=== PATIENT | male | born 1945 | race Caucasian/White ===

== ENCOUNTER → 2022-11-28 | Outpatient (CLI) | payer OTHER, SELFPAY ==
--- NOTE | 2022-11-28 09:10 | ECHOD_ITS ---
Reason For Study: HEART CONDITION Procedure This was a 2D Doppler, Color Flow transthoracic echocardiogram. Exam performed in department. Left Ventricle Normal LV size. Left ventricular systolic function is normal. The estimated ejection fraction is 60 %. Stage 1 diastolic dysfunction. No regional wall motion abnormalities noted. Right Ventricle Normal RV size. Normal systolic function. Atria The left atrium is mildly enlarged. Normal right atrium. Mitral Valve Status post mitral valve repair. Stable appearing mitral valve clip apparatus. Tricuspid Valve Normal tricuspid valve. Mild (1+) tricuspid valve insufficiency. Pulmonary artery systolic pressure is 32 mmHg. Aortic Valve Trisinus/trileaflet aortic valve. Mild (1+) aortic valve insufficiency. Pulmonic Valve Normal pulmonic valve. Great Vessels Normal aortic root. The pulmonary artery is normal size. Normal inferior vena cava. Pericardium/Pleural No pericardial effusion. MMode/2D Measurements & Calculations LVIDd: 6.1 cm IVSd: 0.83 cm LVOT diam: 2.1 cm LVIDs: 5.1 cm LVPWd: 0.94 cm LVOT area: 3.4 cm2 RVDd: 3.4 cm FS: 15.9 % Ao root diam: 3.5 cm LAV(MOD-bp): 69.8 ml LVAd ap4: 30.3 cm2 LAV(MOD-bp) Indexed: 38.2 ml/m2 LVLd ap4: 7.5 cm LAV(MOD-sp2): 57.6 ml EDV(MOD-sp4): 103.8 ml LAV(MOD-sp4): 72.4 ml EDV(sp4-el): 104.5 ml LVAs ap4: 20.4 cm2 LVLs ap4: 6.9 cm ESV(MOD-sp4): 51.4 ml ESV(sp4-el): 51.2 ml EF(MOD-sp4): 50.5 % EF(sp4-el): 51.0 % SV(MOD-sp4): 52.4 ml SV(sp4-el): 53.3 ml LA A4 area: 23.6 cm2 LA dimension(2D): 4.4 cm RA A4 area: 14.1 cm2 Time Measurements MV dec time: 0.39 sec Doppler Measurements & Calculations MV E max iggy: 90.0 cm/sec Lat Peak E' Iggy: 7.6 cm/sec Med Peak E' Iggy: 3.2 cm/sec MV A max iggy: 130.2 cm/sec E/E' lat: 11.8 E/E' med: 28.1 MV E/A: 0.69 MV V2 max: 134.5 cm/sec Ao V2 max: 124.5 cm/sec MV max P.3 mmHg MV dec slope: 231.1 cm/sec2 Ao max P.2 mmHg MV V2 mean: 70.4 cm/sec Ao V2 mean: 84.7 cm/sec MV mean P.5 mmHg Ao mean P.4 mmHg MV V2 VTI: 48.8 cm Ao V2 VTI: 29.0 cm AV (velocity ratio): 0.78 MVA(VTI): 1.6 cm2 MIKE(I,D): 2.6 cm2 MIKE(V,D): 2.4 cm2 AI max iggy: 434.3 cm/sec LV V1 max: 87.7 cm/sec SV(LVOT): 76.4 ml AI max P.5 mmHg LV V1 max P.1 mmHg LV V1 mean P.7 mmHg AI dec slope: 203.9 cm/sec2 LV V1 mean: 60.3 cm/sec AI P1/2t: 623.9 msec LV V1 VTI: 22.5 cm PA V2 max: 101.1 cm/sec PI dec slope: 154.1 cm/sec2 TR max iggy: 270.7 cm/sec PA V2 mean: 60.8 cm/sec TR max P.3 mmHg ECHO/Echo Complete Interpretation Summary Status post mitral valve repair. Normal LV size. Left ventricular systolic function is normal. The estimated ejection fraction is 60 %. Stage 1 diastolic dysfunction. Pulmonary artery systolic pressure is 32 mmHg. Stable appearing mitral valve clip apparatus. Ordering Physician: Yves Saenz Referring Physician: Yves Saenz Performed By: Kesha Beaver RCS
== END | disposition home or self-care (01) ==
LOC: CVS 09:07
PROVIDERS: Referring Provider Chiropractor; Visit Provider Chiropractor
DX: I51.9 Heart disease, unspecified (principal)
CPT/HCPCS: 93306